=== PATIENT | male | born 1940 | race Two or more races ===

== ENCOUNTER 2023-03-04 21:50 | Emergency (ER) | payer SELFPAY ==
[~2023-03-04] VITALS: Ht 188 cm; Wt 81.0 kg
[2023-03-04 21:58] VITALS: O2SAT 98
[2023-03-05] MEDS ORDERED: TOPUD MT (03:21)
[2023-03-05 05:00] VITALS: BP 134/79; PULSE 79; RESP 18; TEMP 97.8
== END 2023-03-05 05:19 | disposition home or self-care (01) ==
LOC: ER 22:02
DX: M17.0 Bilateral primary osteoarthritis of knee (principal)
CPT/HCPCS: 73562; 99283